=== PATIENT | male | born 1970 | race Two or more races ===

== ENCOUNTER 2022-09-13 20:06 | Emergency (ER) | payer OTHER ==
[~2022-09-13] VITALS: Ht 185.4 cm; Wt 117.3 kg
[2022-09-13 20:07] VITALS: BP 125/82
[2022-09-13] MEDS ORDERED: PERTUSS(ACELL),DIPH,TET VAC/PF 0.5 ML SYRINGE IM. ONE (22:30)
[2022-09-13] MEDS ORDERED: LIDOCAINE 1% 10 ML VIAL SQ ONE (22:30)
[2022-09-13] MEDS ORDERED: BACITRACIN 0.9 GM PACKET OINTMENT TP ONE (23:16)
[2022-09-13] MEDS ORDERED: CEPH-558 PO (23:30)
== END 2022-09-13 23:43 | disposition home or self-care (01) ==
LOC: EMS 20:06
DX: S61.012A Laceration without foreign body of left thumb without damage to nail, initial encounter (principal); W19.XXXA Unspecified fall, initial encounter; Y93.89 Activity, other specified; Y92.89 Other specified places as the place of occurrence of the external cause; Y99.8 Other external cause status
CPT/HCPCS: 99283; 90715; 90471; 12001; J3490

== ENCOUNTER 2022-09-16 05:43 | Emergency (ER) | payer OTHER ==
[~2022-09-16] VITALS: Ht 185.4 cm; Wt 115.9 kg
[~2022-09-16 05:43] MED LIST: CEPH-558 PO
[2022-09-16 06:59] VITALS: BP 105/53
== END 2022-09-16 07:05 | disposition home or self-care (01) ==
LOC: EMS 05:44
DX: S61.412A Laceration without foreign body of left hand, initial encounter (principal); Z48.02 Encounter for removal of sutures; X58.XXXA Exposure to other specified factors, initial encounter; Y93.89 Activity, other specified; Y92.89 Other specified places as the place of occurrence of the external cause; Y99.8 Other external cause status
CPT/HCPCS: 99281; Z7502

== ENCOUNTER 2022-09-27 08:18 | Emergency (ER) | payer OTHER ==
[~2022-09-27] VITALS: Ht 185.4 cm; Wt 113.6 kg
[2022-09-27 08:34] VITALS: BP 137/82
[2022-09-27] MEDS ORDERED: BACITRACIN 0.9 GM PACKET OINTMENT TP ONE (09:00)
== END 2022-09-27 09:16 | disposition home or self-care (01) ==
LOC: EMS 08:18
DX: S61.012D Laceration without foreign body of left thumb without damage to nail, subsequent encounter (principal); Z48.02 Encounter for removal of sutures; X58.XXXD Exposure to other specified factors, subsequent encounter
CPT/HCPCS: 99282; Z7502; Z7610